=== PATIENT | female | born 1945 | race Caucasian/White ===

== ENCOUNTER 2016-07-03 19:36 | Emergency (ER) | payer SELFPAY ==
--- NOTE | 2016-07-03 19:44 | EDPHY ---
H & P HPI/ROS: CHIEF COMPLAINT: Cardiac arrest HISTORY OF PRESENT ILLNESS: The patient is an 79 year old female, brought in by EMS, unresponsive. The patient had a witnessed collapse outside of a gnosticist. A bystander started CPR. EMS received phone call at 6:55 about the cardiac arrest. On their arrival patient had no spontaneous respiration and no pulse. monitor tech revealed a wide complex rhythm. IO was placed in left humerus. She was given epinephrine 1mg x2 for PEA. Patient was intubated orally. CPR throughout transport. No change in status. REVIEW OF SYSTEMS: A comprehensive 10 point review of systems is otherwise negative aside from elements mentioned in the history of present illness. Adult Physical General Appearance: Alert, pleasant Eyes: Pupils equal and round, no conjunctival pallor or injection ENT, Mouth: Mucous membranes moist Neck: Normal inspection Respiratory: Lungs are clear to auscultation Cardiovascular: Regular rate and rhythm Gastrointestinal: Abdomen is soft and non-tender Neurological: A&O, nonfocal, normal gait Skin: Warm and dry, no rash Extremities: Nontender, no pedal edema Psychiatric: Mood and affect normal Past Medical/Surgical History: Unknown Social History: unknown Physical Exam: General Appearance: Unresponsive, pale Eyes: Pupils fixed and dilated ENT, Mouth: normal inspection, ETT-tube in place Neck: Normal inspection Respiratory: breath sounds are equal bilaterally Cardiovascular: no heartbeat or peripheral pulses Gastrointestinal: Abdomen is soft Neurological: unresponsive, flaccid Skin: warm, pale Extremities: normal inspection Psychiatric: not applicable Constitutional: Initial Vital Signs Temperature (C) 36.2 C 07/03/16 19:36 Respiratory Rate 16 07/03/16 19:36 O2 Sat (%) 66 L 07/03/16 19:36 O2 Delivery Mode Bag Valve Mask O2 (L/minute) 15 Allergies/Adverse Reactions: Unable to Assess Allergy (Unverified 07/03/16 20:04) Home Medications: Medication Instructions Recorded Unobtainable 07/03/16 Medical Decision Making ED Course/Re-evaluation: 7:39 p.m.: On arrival CPR was ongoing. CPR stopped. Patient has no pulse or spontaneous respiration. monitor tech reveal no cardiac activity. Atropine 1mg IO was administered and Epinephrine 1mg was given. CPR continued. 7:40 p.m.: Procedure: FAST Trauma ultrasound. Limited transthoracic ultrasound was performed and interpreted by myself for the indication of: cardiac arrest utilizing the thoracoabdominal emergency ultrasound protocol. No cardiac activity. 7:44 p.m.: CPR was stopped. She continued to have no pulse or cardiac activity. Greater than 45 minutes of down time with no pulse or cardiac activity. Patient was pronounced . This patient utilized 35 minutes of critical care time exclusive of unbundled procedures. Differential Diagnosis: Includes though not limited to dysrhythmia, acute coronary syndrome, pulmonary embolism, primary respiratory failure. - Data Points Medications Given: Discontinued Medications Atropine Sulfate (Atropine 1 Mg/10 Ml Syringe) 1 mg IVP EDNOW ONE Stop: 07/03/16 20:25 Last Admin: 07/03/16 19:39 Dose: 1 mg Epinephrine HCl (Epinephrine) 1 mg IVP EDNOW ONE Stop: 07/03/16 20:25 Last Admin: 07/03/16 19:40 Dose: 1 mg Departure - Departure Disposition: Clinical Impression: Cardiac arrest Condition: Critical Referrals: Patient,NotPresent [Primary Care Provider] - As per Instructions Report Scribed for: Vannessa Huang Report Scribed by: Casie Maradiaga Date of Report: 07/03/16 Time of Report: 19:45 Physician Review and Approval Statement: 07/03/16 19:45 Portions of this note were transcribed by a medical technologist blood bank. I personally performed the history, physical exam, and medical decision-making; and confirmed the accuracy of the information in the transcribed note.
[2016-07-03 20:21] VITALS: RESP 16; TEMP 97.2
[2016-07-03] MEDS ORDERED: ATROPINE SULFATE 1 MG/10 ML SYR IVP ONE (20:24)
[2016-07-03] MEDS ORDERED: EPINEPHrine 1 MG/10 ML SYR IVP ONE (20:24)
[2016-07-03 20:58] VITALS: O2SAT 93
== END 2016-07-03 19:44 | disposition expired ==
LOC: MERGE 19:36 → EDBD 19:36
DX: I46.9 Cardiac arrest, cause unspecified (principal)
CPT/HCPCS: J0461